=== PATIENT | male | born 2000 | race Asian ===

== ENCOUNTER 2021-12-16 22:25 | Emergency (ER) | payer OTHER ==
--- NOTE | 2021-12-16 22:32 | ED Physician Documentation ---
PD HPI DYSPNEA - Stated complaint Stated Complaint: SOA, CHEST PX - History obtained from History obtained from: Patient - History of Present Illness Timing - onset: How many days ago (1-2) Timing - onset during: Light activity Timing - details: Gradual onset, Still present Inciting event(s): URI (has sore throat and cough for 2 days and has developed pleuritic pain right anterolateral chest.). No: Out of meds Improved by: No: Rest Worsened by: Exertion, Coughing Associated symptoms: Cough, Chest pain / discomfort. No: Fever, Hemoptysis, Wheezing, Bilateral edema Similar symptoms before: Has not had sx before Review of Systems Constitutional: reports: Myalgias. denies: Fever Nose: reports: Congestion Throat: reports: Sore throat Cardiac: reports: Chest pain / pressure (right chest with cough and breathing). denies: Palpitations, Pedal edema, Calf pain Respiratory: reports: Cough. denies: Dyspnea, Wheezing GI: denies: Abdominal Pain, Nausea, Vomiting, Diarrhea Skin: denies: Rash, Lesions PD PAST MEDICAL HISTORY - Past Medical History Cardiovascular: None Respiratory: None Endocrine/Autoimmune: None - Past Surgical History Past Surgical History: No - Present Medications Home Medications: Ambulatory Orders Medication Instructions Recorded Confirmed Albuterol Sulf [Ventolin Hfa 2 - 3 puffs INH Q4HR PRN #1 inhaler 12/16/21 Inhaler] Benzonatate [Tessalon] 100 mg PO TID PRN #20 cap 12/16/21 HYDROcod/ACETAM 5/325 [[place] 5/325] 1 ea PO Q6H PRN #15 tablet 12/16/21 Ondansetron Odt [Zofran] 4 mg TL Q6H PRN #10 tablet 12/16/21 dexAMETHasone [Decadron] 4 mg PO DAILY #5 tablet 12/16/21 - Allergies Allergies/Adverse Reactions: Allergies Allergy/AdvReac Type Severity Reaction Status Date / Time No Known Drug Allergies Allergy Verified 12/16/21 22:46 - Living Situation Living Arrangement: reports: At home - Social History Does the pt smoke?: No Does the pt have substance abuse?: No - Family History Family history: denies: CAD PD ED PE NORMAL - Vitals Vital signs reviewed: Yes - General General: Alert and oriented X 3, Well developed/nourished, Other (appears in pain with moderate deep breaths. ) - HEENT HEENT: Pharynx benign - Neck Neck: Supple, no meningeal sign, No adenopathy - Cardiac Cardiac: RRR, No murmur - Respiratory Respiratory: Clear bilaterally, Other (chest not tender to palpation.) - Abdomen Abdomen: Soft, Non tender - Derm Derm: Normal color, Warm and dry - Extremities Extremities: No edema, No calf tenderness / cord Results - Vitals Vitals: Vital Signs - 24 hr 12/16/21 12/16/21 12/16/21 22:35 23:06 23:30 Temperature 37.1 C Heart Rate 97 89 93 Respiratory 20 18 20 Rate Blood Pressure 131/83 H 126/85 H O2 Saturation 98 95 12/16/21 23:40 Temperature 37.1 C Heart Rate 93 Respiratory 20 Rate Blood Pressure 126/85 H O2 Saturation 95 Oxygen O2 Source Room air - EKG (time done) 22:26 Rate: Rate (enter#) (89) Rhythm: NSR [place]: Normal Intervals: Normal [place] QRS: Normal Ischemia: Normal ST segments. No: ST elevation c/w ischemia, ST depression - Rads (name of study) chest xray Radiology: Prelim report reviewed (no acute process. Source of pain not identified. ), See rad report PD MEDICAL DECISION MAKING - ED course Complexity details: reviewed results, considered differential (seems URI symptoms and pleuritic right pain. Will get CXR to ensure no PTX, pneumonia, effusion, etc. ), d/w patient Departure - Departure Disposition: 01 Home, Self Care Clinical Impression: Pleuritic chest pain Upper respiratory infection Qualifiers: URI type: unspecified URI Qualified Code(s): J06.9 - Acute upper respiratory infection, unspecified Condition: Stable Record reviewed to determine appropriate education?: Yes Instructions: ED Chest Pain Pleurisy Follow-Up: ANK[facility] Wen [Provider Group] Prescriptions: Albuterol Sulf [Ventolin Hfa Inhaler] 2 - 3 puffs INH Q4HR PRN #1 inhaler PRN Reason: Shortness Of Air/Wheezing dexAMETHasone [Decadron] 4 mg PO DAILY #5 tablet HYDROcod/ACETAM 5/325 [[place] 5/325] 1 ea PO Q6H PRN #15 tablet PRN Reason: Pain Benzonatate [Tessalon] 100 mg PO TID PRN #20 cap PRN Reason: Cough Ondansetron Odt [Zofran] 4 mg TL Q6H PRN #10 tablet PRN Reason: Nausea / Vomiting Comments: Your EKG and chest x-ray are good without any signs of heart attack, irregular heartbeat, pneumonia, collapsed lung, fluid around the lung. Your symptoms sound like inflammation on the surface of the lung causing it to rub instead of glide when you take breaths and move. This is called pleurisy and is fairly common associated with viral type illnesses. Use the hydrocodone 1 to 2 tablets when you get home tonight to help reduce the pain further. Subsequently continue with Decadron steroid daily for the next 5 days and benzonatate as prescribed if needed for cough. Ondansatron for nausea. Use the albuterol inhaler 2 to 3 puffs 4 times a day for the next several days to week to help open the airways and reduce spasming and tightness. Add Tylenol every 4-6 hours if needed for pain or the hydrocodone if needed for worse pain. I would anticipate improvement over the next 2 to 3 days. Recheck if not improving well over the next 2 to 3 days and return if worsening cough/ pain/ trouble breathing, or other concerning symptoms. Your Covid test should result likely tomorrow or the next day. Off work and rest and quarantine for the next couple of days pending the results of that and pending improvement. You have a Covid test pending. You need to self quarantine until the result is done and negative. Do not leave your house. Do not get near anybody. The results should be done in 48 to 72 hours, but sometimes longer. We will call with a positive result, the fastest way to get a negative result for confirmation though is to go to the hospital website at [email or web address], click on the my [facility] tab and sign up for the patient portal. If any friends or family get sick and would like to have a Covid test done, but do not have signs or symptoms that would necessitate being hospitalized, we encourage testing throughone of the local pharmacies or the Health Department. Call them to schedule an appointment. I transmitted your prescriptions to [facility] pharmacy in [place]. I am prescribing a short course of narcotic pain medication for you. These are potentially dangerous and addictive medications that should be used carefully. These medications may constipate you. Take an [id number] stool softener such as docusate twice daily with plenty of water while taking these medications. If you go 24 hours without a bowel movement, take [id number] MiraLAX, per package instructions. Do not drink or drive while taking these medications. If you received narcotic or sedating medications while in the emergency department do not drive for 24 hours. Store this medication in a safe, secure place and out of reach of children. It is a violation of federal law to give or sell this medication to another person or to use in a manner other than prescribed. The ED will not refill narcotic prescriptions, including prescriptions lost or stolen. You can dispose of unwanted medications at the [facility]'s office or at several pharmacies such as [facility]. Forms: Activity restrictions Discharge Date/Time: 12/16/21 23:48
[2021-12-16] MEDS ORDERED: KETOROLAC 30 MG/ML VIAL IM STA (22:45)
[2021-12-16] MEDS ORDERED: ALBUTEROL 1 PUFF INH STA (22:45)
[2021-12-16] MEDS ORDERED: ACETAMINOPHEN 325 MG TABLET PO STA (22:45)
[2021-12-16] MEDS ORDERED: CHERRY SYRUP 10 ML UDC PO ONE (22:51)
[2021-12-16] MEDS ORDERED: DEXAMETHASONE 10 MG/ML VIAL PO STA (22:51)
[2021-12-16] MEDS: BENZONATATE 100 MG CAPSULE PO STA (22:56)
[2021-12-16] MEDS ORDERED: HYDROcod/ACET 5/325 Prepack 4 PO STA (23:14)
--- NOTE | 2021-12-16 23:17 | XRAY Report ---
PROCEDURE: Chest 1 View X-Ray INDICATIONS: chest pain with breathing/cough TECHNIQUE: One view of the chest was acquired. COMPARISON: None. FINDINGS: Surgical changes and devices: None. Lungs and pleura: No pleural effusions or pneumothorax. Lungs are clear. Mediastinum: Mediastinal contours appear normal. Heart size is normal. Bones and chest wall: No suspicious bony lesions. Overlying soft tissues appear unremarkable. IMPRESSION: Normal for age, source of chest pain and cough is not found. Reviewed by: Jeremy Davila MD on 12/16/2021 11:16 PM PDT Approved by: Jeremy Davila MD on 12/16/2021 11:16 PM PDT Station ID: [id number]
[2021-12-16 23:35] VITALS: BP 126/85
== END 2021-12-16 23:48 | disposition home or self-care (01) ==
LOC: ED 22:25
DX: J06.9 Acute upper respiratory infection, unspecified (principal); Z20.822 Contact with and (suspected) exposure to COVID-19
CPT/HCPCS: 71045; 87635; 93005; 94640; 94664; 96372; 99282; 99284; A9270

== ENCOUNTER 2023-09-06 23:48 | Emergency (ER) | payer OTHER ==
[2023-09-06 23:56] VITALS: BP 150/84; O2SAT 100
[2023-09-07 01:11] LABS: BASOPHILS % (AUTO) 0.4 %; EOSINOPHILS % (AUTO) 0.4 %; HCT - HEMATOCRIT 47.8 % (42.0-52.0); HGB - HEMOGLOBIN 15.9 g/dL (14.0-18.0); LYMPHOCYTES # (AUTO) 2.5 10^3/uL (1.5-3.5); LYMPHOCYTES % (AUTO) 24.2 %; MEAN CORPUSCULAR HGB CONC 33.3 g/dL (32.0-36.0); MEAN CORPUSCULAR VOLUME 87.1 fL (80.0-94.0); MEAN PLATELET VOLUME 10.6 fL (7.4-11.4); MONOCYTES # (AUTO) 0.8 10^3/uL (0.0-1.0); MONOCYTES % (AUTO) 7.7 %; NEUTROPHILS # (AUTO) 6.8 10^3/uL (1.5-6.6); NEUTROPHILS % (AUTO) 66.9 %; PLT - PLATELET COUNT 265 10^3/uL (130-450); RED BLOOD COUNT 5.49 10^6/uL (4.70-6.10); RED CELL DISTRIBUTION WIDTH 11.8 % (12.0-15.0); WHITE BLOOD COUNT 10.2 x10^3/uL (4.8-10.8)
[2023-09-07 01:28] LABS: ALBUMIN 4.7 g/dL (3.2-5.5)
[2023-09-07 02:42] LABS: ALBUMIN/GLOBULIN RATIO 1.6 (1.0-2.2); BILIRUBIN,TOTAL 0.6 mg/dL (0.2-1.0); CALCIUM 9.8 mg/dL (8.5-10.3); TOTAL PROTEIN 7.6 g/dL (6.4-8.9)
[2023-09-07 04:10] LABS: CREATININE 0.9 mg/dL (0.6-1.3)
== END 2023-09-07 03:28 | disposition left against medical advice (07) ==
LOC: ED 23:48
DX: Z12.31 Encounter for screening mammogram for malignant neoplasm of breast (principal)
CPT/HCPCS: 36415; 80053; 83690; 85025

== ENCOUNTER 2023-09-07 15:16 | Emergency (ER) | payer OTHER ==
[2023-09-07 15:56] LABS: BASOPHILS % (AUTO) 0.5 %; EOSINOPHILS % (AUTO) 0.4 %; HCT - HEMATOCRIT 45.9 % (42.0-52.0); HGB - HEMOGLOBIN 15.6 g/dL (14.0-18.0); LYMPHOCYTES # (AUTO) 1.6 10^3/uL (1.5-3.5); LYMPHOCYTES % (AUTO) 29.8 %; MEAN CORPUSCULAR HEMOGLOBIN 29.6 pg (27.0-31.0); MEAN CORPUSCULAR VOLUME 87.1 fL (80.0-94.0); MEAN PLATELET VOLUME 10.4 fL (7.4-11.4); MONOCYTES # (AUTO) 0.4 10^3/uL (0.0-1.0); MONOCYTES % (AUTO) 6.7 %; NEUTROPHILS # (AUTO) 3.4 10^3/uL (1.5-6.6); NEUTROPHILS % (AUTO) 62.2 %; PLT - PLATELET COUNT 246 10^3/uL (130-450); RED BLOOD COUNT 5.27 10^6/uL (4.70-6.10); RED CELL DISTRIBUTION WIDTH 11.9 % (12.0-15.0); WHITE BLOOD COUNT 5.5 x10^3/uL (4.8-10.8)
[2023-09-07 16:20] LABS: BILIRUBIN,URINE NEGATIVE (NEGATIVE); GLUCOSE, URINE (UA) NEGATIVE (NEGATIVE); KETONES,URINE (UA) NEGATIVE (NEGATIVE); LEUKOCYTE ESTERASE, URINE NEGATIVE (NEGATIVE); NITRITE,URINE NEGATIVE (NEGATIVE); OCCULT BLOOD,URINE NEGATIVE (NEGATIVE); PH,URINE 7.5 PH (5.0-7.5); PROTEIN,URINE NEGATIVE (NEGATIVE); UROBILINOGEN,URINE 0.2 (NORMAL) E.U./dL (NORMAL)
[2023-09-07 16:22] LABS: CLARITY,URINE CLEAR (CLEAR)
[2023-09-07 16:36] LABS: ALBUMIN 4.6 g/dL (3.2-5.5); ALBUMIN/GLOBULIN RATIO 1.6 (1.0-2.2); BILIRUBIN,TOTAL 0.9 mg/dL (0.2-1.0); CALCIUM 9.9 mg/dL (8.5-10.3); CREATININE 0.8 mg/dL (0.6-1.3); POTASSIUM 4.1 mmol/L (3.5-4.5); TOTAL PROTEIN 7.4 g/dL (6.4-8.9)
--- NOTE | 2023-09-07 16:56 | ED Physician Documentation ---
PD HPI ABD PAIN - Stated complaint Stated Complaint: /VOMIT - Chief complaint Chief Complaint: Abd Pain - History obtained from History obtained from: Patient - Additional information Additional information: 22-year-old male with no reported past medical history presents reporting bright red blood in his emesis as well as black stools. He states that yesterday he drank a red Powerade and 2 bottles of red wine which is very atypical for him. Today he had vomiting with what appeared to be red blood in his emesis as well as the darker stools. He is concerned about internal bleeding. Denies history of GI bleeding. He has a hemorrhoid that is followed by his primary care physician, denies any other medical problems. Patient normally does not drink, the red wine last night was very atypical for him. Review of Systems Constitutional: denies: Fever, Chills Cardiac: denies: Chest pain / pressure, Palpitations, Calf pain Respiratory: denies: Dyspnea, Cough, Wheezing GI: reports: Abdominal Pain, Hematemesis, Bloody / black stool. denies: Nausea, Vomiting, Constipation, Diarrhea : denies: Dysuria, Frequency, Hesitancy PD PAST MEDICAL HISTORY - Past Medical History Cardiovascular: None Respiratory: None Neuro: None Endocrine/Autoimmune: None GI: Hemorrhoids : None HEENT: None Psych: None Musculoskeletal: None Derm: None - Past Surgical History Past Surgical History: No - Present Medications Home Medications: Ambulatory Orders Medication Instructions Recorded Confirmed Albuterol Sulf [Ventolin Hfa 2 - 3 puffs INH Q4HR PRN #1 inhaler 12/16/21 Inhaler] Benzonatate [Tessalon] 100 mg PO TID PRN #20 cap 12/16/21 HYDROcod/ACETAM 5/325 [[place] 5/325] 1 ea PO Q6H PRN #15 tablet 12/16/21 Ondansetron Odt [Zofran] 4 mg TL Q6H PRN #10 tablet 12/16/21 dexAMETHasone [Decadron] 4 mg PO DAILY #5 tablet 12/16/21 - Allergies Allergies/Adverse Reactions: Allergies Allergy/AdvReac Type Severity Reaction Status Date / Time No Known Drug Allergies Allergy Verified 09/06/23 23:52 - Social History Does the pt smoke?: Yes Smoking Status: Current every day smoker Does the pt drink ETOH?: Yes Does the pt have substance abuse?: No - Immunizations Immunizations are current?: Yes PD ED PE NORMAL - General General: Alert and oriented X 3, No acute distress, Well developed/nourished - Neck Neck: Supple, no meningeal sign - Cardiac Cardiac: RRR, Strong equal pulses - Respiratory Respiratory: No respiratory distress, Clear bilaterally - Abdomen Abdomen: Soft, Non tender, Non distended - Derm Derm: Normal color, Warm and dry, No rash - Extremities Extremities: No deformity, No tenderness to palpate, Normal ROM s pain, No edema - Neuro Neuro: Alert and oriented X 3, heavy cleaner 2-12 intact, No motor deficit, Normal speech - Psych Psych: Normal mood, Normal affect Results - Vitals Vitals: Vital Signs - 24 hr 09/07/23 09/07/23 09/07/23 15:26 15:30 17:00 Temperature 36.6 C 36.6 C 36.6 C Heart Rate 71 71 70 Respiratory 18 18 16 Rate Blood Pressure 125/86 H 125/86 H 124/80 O2 Saturation 98 98 100 Oxygen O2 Source Room air - Labs Labs: Laboratory Tests 09/07/23 09/07/23 09/07/23 15:38 15:51 15:51 WBC 5.5 RBC 5.27 Hgb 15.6 Hct 45.9 MCV 87.1 MCH 29.6 MCHC 34.0 RDW 11.9 L Plt Count 246 MPV 10.4 Neut # (Auto) 3.4 Lymph # (Auto) 1.6 [place] # (Auto) 0.4 Eos # (Auto) 0.0 Baso # (Auto) 0.0 Absolute Nucleated RBC 0.00 Nucleated RBC % 0.0 Sodium 140 Potassium 4.1 Chloride 104 Carbon Dioxide 29 Anion Gap 7.0 BUN 15 Creatinine 0.8 Estimated GFR (MDRD) 119 Glucose 102 Calcium 9.9 Total Bilirubin 0.9 AST 17 ALT 28 Alkaline Phosphatase 74 Total Protein 7.4 Albumin 4.6 Globulin 2.8 Albumin/Globulin Ratio 1.6 Lipase 18 Urine Color YELLOW Urine Clarity CLEAR Urine pH 7.5 Ur Specific [place] 1.020 Urine Protein NEGATIVE Urine Glucose (UA) NEGATIVE Urine Ketones NEGATIVE Urine Occult Blood NEGATIVE Urine Nitrite NEGATIVE Urine Bilirubin NEGATIVE Urine Urobilinogen 0.2 (NORMAL) Ur Leukocyte Esterase NEGATIVE Ur Microscopic Review NOT INDICATED Urine Culture Comments NOT INDICATED PD Medical Decision Making - ED course Complexity details: reviewed results, re-evaluated patient, considered differential, d/w patient ED course: Well-appearing patient with reported hematemesis and dark stools after drinking red wine and red Powerade. Patient is hemodynamically stable, nontoxic in appearance, no distress. Patient consumed numerous dark red substances the day before and this is likely contributing to his symptoms. Patient showed me a picture of his stools, they do appear to be dark but not black or melanotic.Laboratory work is reviewed, unremarkable. Here is no anemia, no leukocytosis, kidney function and liver enzymes are all normal. Patient advised to avoid binge drinking, and he may follow-up with his primary care physician. ED return precautions discussed at bedside. Departure - Departure Disposition: 01 Home, Self Care Clinical Impression: Abdominal pain Qualifiers: Abdominal location: generalized Qualified Code(s): R10.84 - Generalized abdominal pain Condition: Stable Instructions: Abdominal Pain Forms: PCP List Discharge Date/Time: 09/07/23 17:00
[2023-09-07 17:06] VITALS: BP 124/80; O2SAT 100
== END 2023-09-07 17:00 | disposition home or self-care (01) ==
LOC: ED 15:16
DX: R10.84 Generalized abdominal pain (principal); F17.200 Nicotine dependence, unspecified, uncomplicated
CPT/HCPCS: 36415; 80053; 81001; 81003; 83690; 85025; 87086; 99283